=== PATIENT | female | born 1975 | race Caucasian/White ===

== ENCOUNTER 2017-11-28 10:27 | Emergency (ER) | payer OTHER ==
--- NOTE | 2017-11-28 12:12 | ED Physician Documentation ---
PD HPI CHEST PAIN - Stated complaint Stated Complaint: CHEST PX/COUGH - Chief complaint Chief Complaint: Resp - History obtained from History obtained from: Patient - History of Present Illness Timing - onset: Other (Previously healthy 42-year-old non-smoker with no possibility of presents with 3-1/2 weeks of intermittently productive cough that started with fevers but over the last 2 days has developed chest pain with deep breathing and coughing on the left side. She is modestly short of breath. Fevers are gone now.) Review of Systems Constitutional: reports: Fatigue. denies: Fever, Chills Nose: reports: Congestion. denies: Rhinorrhea / runny nose Throat: denies: Sore throat Cardiac: reports: Chest pain / pressure Respiratory: reports: Dyspnea, Cough PD PAST MEDICAL HISTORY - Past Medical History Past Medical History: No - Past Surgical History Past Surgical History: No - Present Medications Home Medications: Ambulatory Orders Medication Instructions Recorded Confirmed LORazepam [Ativan] 0.5 - 1 mg PO Q8HR PRN #15 tablet 08/22/15 Multivitamin [Multivitamins] 1 tab DAILY 08/22/15 08/22/15 Albuterol Sulfate [Proventil Hfa 1 - 2 puffs IH Q4H PRN #1 11/28/17 Inhaler] [email or web address] Azithromycin [Zithromax] 250 mg PO DAILY #6 tablet 11/28/17 Ibuprofen [Motrin] 800 mg PO Q8H PRN #30 tablet 11/28/17 - Allergies Allergies/Adverse Reactions: Allergies Allergy/AdvReac Type Severity Reaction Status Date / Time doxycycline Allergy Unknown Verified 11/28/17 10:37 erythromycin base Allergy Unknown Verified 11/28/17 10:37 - Social History Does the pt smoke?: No Smoking Status: Never smoker Does the pt drink ETOH?: Yes Does the pt have substance abuse?: No - Immunizations Immunizations are current?: Yes PD ED PE NORMAL - Vitals Vital signs reviewed: Yes - General General: Alert and oriented X 3, No acute distress - HEENT HEENT: PERRL, EOMI, Ears normal, Moist mucous membranes, Pharynx benign - Neck Neck: Supple, no meningeal sign, No bony TTP - Cardiac Cardiac: RRR, No murmur - Respiratory Respiratory: No respiratory distress, Other (She is a clear clinical left basilar pneumonia with crackles and diminished sounds on that side.) - Abdomen Abdomen: Non tender - Neuro Neuro: Alert and oriented X 3, Normal speech - Psych Psych: Normal mood, Normal affect Results - Vitals Vitals: Vital Signs - 24 hr 11/28/17 11/28/17 10:33 12:23 Temperature 36.7 C 37.1 C Heart Rate 115 H 104 H Respiratory 20 20 Rate Blood Pressure 135/69 H 149/88 H O2 Saturation 98 98 Oxygen O2 Source Room air - EKG (time done) 1039 Rate: Rate (enter#) (97) Rhythm: NSR [place]: Normal Intervals: Normal [place] QRS: Normal Ischemia: Normal ST segments Computer interpretation: Agree with computer PD MEDICAL DECISION MAKING - ED course ED course: We discussed her allergies at length, reaction to erythromycin was potentially a rash at age 11 when she was treated for bronchitis. She has never been on Zithromax. I offered Levaquin but after discussion she did not like the side effects and wanted to try the Zithromax which seems pretty safe. Departure - Departure Disposition: 01 Home, Self Care Clinical Impression: Pneumonia Qualifiers: Pneumonia type: due to unspecified organism Laterality: left Lung location: lower lobe of lung Qualified Code(s): J18.1 - Lobar pneumonia, unspecified organism Condition: Good Record reviewed to determine appropriate education?: Yes Instructions: Pneumonia Dc Prescriptions: Albuterol Sulfate [Proventil Hfa Inhaler] 1 - 2 puffs IH Q4H PRN #1 [email or web address] PRN Reason: Cough Azithromycin [Zithromax] 250 mg PO DAILY #6 tablet Ibuprofen [Motrin] 800 mg PO Q8H PRN #30 tablet PRN Reason: PAIN &/OR FEVER Comments: Call your doctor to arrange a follow-up appointment, make the next available appointment. In the interim, return anytime if worse or if new symptoms develop. Your blood pressure was elevated today on check into the emergency department. This does not mean that you have hypertension, it is a common phenomenon to come to the emergency department and have elevated blood pressure. I recommend that you see your primary care physician within the week to have it rechecked when you are feeling better. Discharge Date/Time: 11/28/17 12:23
[2017-11-28 12:24] VITALS: BP 149/88
== END 2017-11-28 12:23 | disposition home or self-care (01) ==
LOC: ED 10:27
DX: J18.9 Pneumonia, unspecified organism (principal); R03.0 Elevated blood-pressure reading, without diagnosis of hypertension
CPT/HCPCS: 93005; 99283; 99284

== ENCOUNTER 2017-12-03 05:53 | Emergency (ER) | payer OTHER ==
[2017-12-03 06:17] LABS: BILIRUBIN,URINE NEGATIVE (NEGATIVE); GLUCOSE, URINE (UA) NEGATIVE (NEGATIVE); KETONES,URINE (UA) NEGATIVE (NEGATIVE); LEUKOCYTE ESTERASE, URINE NEGATIVE (NEGATIVE); NITRITE,URINE NEGATIVE (NEGATIVE); OCCULT BLOOD,URINE LARGE (NEGATIVE); PROTEIN,URINE NEGATIVE (NEGATIVE); UROBILINOGEN,URINE 0.2 (NORMAL) E.U./dL (NORMAL)
[2017-12-03 06:20] LABS: CLARITY,URINE CLEAR (CLEAR); HCG UR QUAL NEGATIVE
[2017-12-03 06:31] LABS: BASOPHILS # (AUTO) 0.1 10^3/uL (0.0-0.1); BASOPHILS % (AUTO) 0.8 %; EOSINOPHILS # (AUTO) 0.2 10^3/uL (0.0-0.7); EOSINOPHILS % (AUTO) 3.5 %; LYMPHOCYTES # (AUTO) 1.7 10^3/uL (1.5-3.5); MEAN CORPUSCULAR HGB CONC 32.3 g/dL (32.0-36.0); MEAN CORPUSCULAR VOLUME 80.5 fL (81.0-99.0); MEAN PLATELET VOLUME 9.4 fL (7.9-10.8); MONOCYTES # (AUTO) 0.4 10^3/uL (0.0-1.0); MONOCYTES % (AUTO) 6.2 %; NEUTROPHILS % (AUTO) 63.5 %; PLT - PLATELET COUNT 178 10^3/uL (130-450); RED CELL DISTRIBUTION WIDTH 14.6 % (12.0-15.0); WHITE BLOOD COUNT 6.4 x10^3/uL (4.8-10.8)
[2017-12-03 06:34] LABS: ALBUMIN/GLOBULIN RATIO 1.2 (1.0-2.2); BILIRUBIN,TOTAL 0.4 mg/dL (0.2-1.0); CALCIUM 8.9 mg/dL (8.5-10.3); CREATININE 0.6 mg/dL (0.4-1.0); TOTAL PROTEIN 7.3 g/dL (6.7-8.2)
[2017-12-03 06:34] LABS: BACTERIA,URINE None Seen /HPF (None Seen); SQUAMOUS EPITHELIAL CELL,UR FEW Squamous (<= Few)
[2017-12-03 07:02] LABS: PLATELET MORPHOLOGY 1+ LARGE PLATELETS (NORMAL); RBC MORPHOLOGY (MULTIPLE) NORMAL APPEARANCE (NORMAL)
[2017-12-03 07:03] LABS: PLATELET ESTIMATE, MANUAL NORMAL (130-450,000) (NORMAL)
--- NOTE | 2017-12-03 07:52 | ED Physician Documentation ---
History of Present Illness - Stated complaint Stated Complaint: ABDOMINAL PAIN - Chief complaint Chief Complaint: Abd Pain - Additonal information Additional information: assumed care 7 AM 42 female presented to the ER overnight with RLQ pain since yesterday has been sick with pna on zmax and coughing quite a lot rlq pain started yesterday no dysuria on her menses denies any chance at all of STD - not sexually active and no vag dc etc seen and started by shift boss slightly tachy labs and RLQ / pelvic sono ordered WBC 6 HCG neg urine + blood but not infection pelvic sono = fibroid abd sono = apendix not seen no secondayr signs - pt quite thin so good sono I went to see pt upon return for sono RRR L lung ronchi (on antibiotics) abd soft, TTP RLQ but not peritoneal pelvic deferred ackerman pt has no risks for STD and sturctures were seen on sono d/w pt that her nl WBC and sono are reassuring this is not appendicitis (could also be secondary to heavy cough) given results this far would not expose pt to radition of a CT scan but did caution pt to return if pain worsens and might reconsider CT at that time she verbalizes an undertsanding Review of Systems Constitutional: denies: Fever Respiratory: reports: Cough (known pna txed for already) GI: reports: Abdominal Pain : reports: LMP (now). denies: Dysuria Endocrine: denies: Easy bruising / bleeding Immunocompromised: denies: Immunocompromised PD PAST MEDICAL HISTORY - Past Medical History Past Medical History: No - Past Surgical History Past Surgical History: No - Present Medications Home Medications: Ambulatory Orders Medication Instructions Recorded Confirmed LORazepam [Ativan] 0.5 - 1 mg PO Q8HR PRN #15 tablet 08/22/15 Multivitamin [Multivitamins] 1 tab DAILY 08/22/15 08/22/15 Albuterol Sulfate [Proventil Hfa 1 - 2 puffs IH Q4H PRN #1 11/28/17 Inhaler] [email or web address] Azithromycin [Zithromax] 250 mg PO DAILY #6 tablet 11/28/17 Ibuprofen [Motrin] 800 mg PO Q8H PRN #30 tablet 11/28/17 - Allergies Allergies/Adverse Reactions: Allergies Allergy/AdvReac Type Severity Reaction Status Date / Time doxycycline Allergy Hives Verified 12/03/17 06:17 erythromycin base Allergy Hives Verified 12/03/17 06:17 - Social History Does the pt smoke?: No Smoking Status: Never smoker Does the pt drink ETOH?: Yes Does the pt have substance abuse?: No - Immunizations Immunizations are current?: Yes - POLST Patient has POLST: No PD ED PE NORMAL - Vitals Vital signs reviewed: Yes - Neck Neck: Supple, no meningeal sign - Cardiac Cardiac: RRR - Respiratory Respiratory: No respiratory distress. No: Clear bilaterally (L lung ronchi) - Abdomen Abdomen: Soft, Other (TTP RLQ but not peritoneal) - Derm Derm: Normal color - Neuro Neuro: Alert and oriented X 3 Results - Vitals Vitals: Vital Signs - 24 hr 12/03/17 12/03/17 06:00 08:03 Temperature 36.7 C Heart Rate 104 H 99 Respiratory 16 15 Rate Blood Pressure 164/89 H 146/77 H O2 Saturation 100 100 Oxygen O2 Source Room air - Labs Labs: Laboratory Tests 12/03/17 12/03/17 12/03/17 06:10 06:10 06:12 WBC 6.4 RBC 5.00 Hgb 13.0 Hct 40.2 MCV 80.5 L MCH 26.0 L MCHC 32.3 RDW 14.6 Plt Count 178 MPV 9.4 Neut # 4.0 Lymph # 1.7 [place] # 0.4 Eos # 0.2 Baso # 0.1 Absolute Nucleated RBC 0.00 Nucleated RBC % 0.0 Manual Slide Review Indicated Platelet Estimate NORMAL (130-450,000) Platelet Morphology 1+ LARGE PLATELETS RBC Morph Micro Appear NORMAL APPEARANCE Sodium Potassium Chloride Carbon Dioxide Anion Gap BUN Creatinine Estimated GFR (MDRD) Glucose Calcium Total Bilirubin AST ALT Alkaline Phosphatase Total Protein Albumin Globulin Albumin/Globulin Ratio Lipase Urine Color LT. YELLOW Urine Clarity CLEAR Urine pH 6.0 Ur Specific [place] <=1.005 <=1.005 Urine Protein NEGATIVE Urine Glucose (UA) NEGATIVE Urine Ketones NEGATIVE Urine Occult Blood LARGE H Urine Nitrite NEGATIVE Urine Bilirubin NEGATIVE Urine Urobilinogen 0.2 (NORMAL) Ur Leukocyte Esterase NEGATIVE Urine RBC 6-10 H Urine WBC 0-3 Ur Squamous Epith Cells FEW Squamous Urine Bacteria None Seen Ur Microscopic Review INDICATED Urine Culture Comments NOT INDICATED Urine HCG, Qual NEGATIVE 12/03/17 06:12 WBC RBC Hgb Hct MCV MCH MCHC RDW Plt Count MPV Neut # Lymph # [place] # Eos # Baso # Absolute Nucleated RBC Nucleated RBC % Manual Slide Review Platelet Estimate Platelet Morphology RBC Morph Micro Appear Sodium 137 Potassium 3.9 Chloride 105 Carbon Dioxide 23 Anion Gap 9.0 BUN 10 Creatinine 0.6 Estimated GFR (MDRD) 110 Glucose 109 H Calcium 8.9 Total Bilirubin 0.4 AST 24 ALT 21 Alkaline Phosphatase 57 Total Protein 7.3 Albumin 4.0 Globulin 3.3 Albumin/Globulin Ratio 1.2 Lipase 29 Urine Color Urine Clarity Urine pH Ur Specific [place] Urine Protein Urine Glucose (UA) Urine Ketones Urine Occult Blood Urine Nitrite Urine Bilirubin Urine Urobilinogen Ur Leukocyte Esterase Urine RBC Urine WBC Ur Squamous Epith Cells Urine Bacteria Ur Microscopic Review Urine Culture Comments Urine HCG, Qual - Rads (name of study) pelvic sono Radiology: See rad report (1.5 cm fibroid, nl ovaries) rlq abd sono Radiology: See rad report (appendic not seen, no secondary signs of appy make appy low probablility) PD MEDICAL DECISION MAKING - ED course ED course: assumed care 7 AM Departure - Departure Disposition: 01 Home, Self Care Clinical Impression: Abdominal pain Qualifiers: Abdominal location: right lower quadrant Qualified Code(s): R10.31 - Right lower quadrant pain Condition: Good Instructions: ED Abdominal Pain Appendx Poss Comments: Your labs were fine - normal kidney liver gallbladder and pancreas function. The urine sample showed blood but not infection The ultrasound shows you have a small fibroid but normal ovaries and no signs of appendicitis. We could get a CT scan as well to see your appendix in more detail - but given the reassuring white blood cell count and ultrasound i do not think it prudent to expose you to so much radiation For now I think it is OK for you to go home But if the pain continues to worsen, please come back and we may reconsider getting the CT scan Tylenol and motrin as needed for the pain Forms: Activity restrictions
--- NOTE | 2017-12-03 07:59 | Ultrasound Report ---
EXAM: PELVIC ULTRASOUND EXAM DATE: 12/03/2017 07:25 AM. CLINICAL HISTORY: Right lower quadrant pain. COMPARISON: None. TECHNIQUE: Realtime transabdominal pelvic scan performed to identify the uterus and adnexa and as an overview of other pelvic structures, followed by transvaginal scan to provide greater detail of the u terus and adnexa, with static image documentation. FINDINGS: Uterus: 11 x 4.6 x 5.4 cm, volume 143 cc. Anteverted position. Normal overall size and echotexture. Masses: Anterior subserosal fibroid measures 1.5 x 0.9 x 1.5 cm. Endometrium: 5 mm. Normal. Cervix: Unremarkable. Right Ovary: 3.3 x 1.4 x 3.5 cm, volume 8.5 cc. Normal echotexture and blood flow. Left Ovary: 3.8 x 2.8 x 1.9 cm, volume 11 cc. Normal echotexture and blood flow. Free Fluid: None. Other: None. IMPRESSION: 1. A 1.5 cm anterior subserosal fibroid. 2. Normal ovaries. [facility] Referring Provider Line: [phone] SITE ID: [id number]
--- NOTE | 2017-12-03 07:59 | Ultrasound Preliminary Report ---
Exam: US PELVIC NON OB W/DOPPLER LTD IMPRESSION: 1. A 1.5 cm anterior subserosal fibroid. 2. Normal ovaries. [facility] SITE ID: [id number]
--- NOTE | 2017-12-03 08:00 | Ultrasound Report ---
EXAM: Limited ABDOMINAL ultrasound EXAM DATE: 12/03/2017 07:40 AM. CLINICAL HISTORY: Rlq pain, eval appendix. COMPARISON: None. TECHNIQUE: Real-time scanning was performed of the right lower quadrant with static images obtained. FINDINGS: APPENDIX: Not seen. COMPRESSION TOLERATED: Moderate. ASSOCIATED FINDINGS: Lymph Nodes Seen: None. Free Fluid/Complex Fluid Seen: None. Thickened Bowel Wall Seen: None. Other: None. IMPRESSION: 1. Appendix not identified. 2. Absence of secondary findings suggests a low probability for appendicitis. Recommend clinical nelida elation. [facility] Referring Provider Line: [phone] SITE ID: [id number]
[2017-12-03 08:05] VITALS: BP 146/77
== END 2017-12-03 09:43 | disposition home or self-care (01) ==
LOC: ED 05:53
DX: R10.31 Right lower quadrant pain (principal)
CPT/HCPCS: 36415; 76705; 76856; 80053; 81001; 81003; 81025; 83690; 85025; 87086; 93976; 99283

== ENCOUNTER 2017-12-23 08:00 | Outpatient (CLI) | payer OTHER ==
[2017-12-23 12:48] LABS: BASOPHILS % (AUTO) 0.8 %; EOSINOPHILS # (AUTO) 0.2 10^3/uL (0.0-0.7); EOSINOPHILS % (AUTO) 2.7 %; HGB - HEMOGLOBIN 13.9 g/dL (12.0-16.0); LYMPHOCYTES # (AUTO) 1.7 10^3/uL (1.5-3.5); LYMPHOCYTES % (AUTO) 29.1 %; MEAN CORPUSCULAR HEMOGLOBIN 26.8 pg (27.0-31.0); MEAN CORPUSCULAR HGB CONC 33.1 g/dL (32.0-36.0); MEAN CORPUSCULAR VOLUME 80.8 fL (81.0-99.0); MEAN PLATELET VOLUME 10.5 fL (7.9-10.8); MONOCYTES # (AUTO) 0.3 10^3/uL (0.0-1.0); MONOCYTES % (AUTO) 5.8 %; NEUTROPHILS # (AUTO) 3.5 10^3/uL (1.5-6.6); NEUTROPHILS % (AUTO) 61.6 %; PLT - PLATELET COUNT 153 10^3/uL (130-450); RED BLOOD COUNT 5.17 10^6/uL (4.20-5.40); RED CELL DISTRIBUTION WIDTH 15.1 % (12.0-15.0); WHITE BLOOD COUNT 5.7 x10^3/uL (4.8-10.8)
[2017-12-23 13:25] LABS: ALBUMIN 4.5 g/dL (3.2-5.5); ALBUMIN/GLOBULIN RATIO 1.6 (1.0-2.2); ALKALINE PHOSPHATASE 46 IU/L (42-121); ALT ALANINE AMINOTRANSFERASE 25 IU/L (10-60); AST ASPARTATE AMINOTRANSFERASE 31 IU/L (10-42); BILIRUBIN,TOTAL 0.6 mg/dL (0.2-1.0); BUN - BLOOD UREA NITROGEN 7 mg/dL (6-20); CALCIUM 8.8 mg/dL (8.5-10.3); CARBON DIOXIDE - CO2 24 mmol/L (21-32); CHLORIDE 103 mmol/L (101-111); CHOL/HDL RATIO 4.3 (<4.4); CHOLESTEROL 231 mg/dL; CREATININE 0.7 mg/dL (0.4-1.0); GFR - MDRD 92 (>89); GLUCOSE 93 mg/dL (70-100); HDL CHOLESTEROL 54 mg/dL; LDL CHOLESTEROL,CALCULATED 158 mg/dL; LDL/HDL RATIO 2.9 (<4.4); SODIUM 135 mmol/L (135-145); TOTAL PROTEIN 7.4 g/dL (6.7-8.2); VLDL CHOLESTEROL 19 mg/dL
[2017-12-23 13:28] LABS: HB2 TOTAL 15.2 g/dL; HEMOGLOBIN A1C 0.49 g/dL; HEMOGLOBIN A1C % 5.1 % (4.6-6.2)
[2017-12-23 13:37] LABS: THYROID STIMULATING HORMONE 1.77 uIU/mL (0.34-5.60)
== END 2017-12-23 08:01 ==
LOC: LAB.WCP 08:00
PROVIDERS: ATTEND Family Medicine
DX: Z00.00 Encounter for general adult medical examination without abnormal findings (principal)
CPT/HCPCS: 36415; 80053; 80061; 82306; 82607; 82746; 83036; 83721; 84443; 85025

== ENCOUNTER 2018-11-25 11:27 | Outpatient (CLI) | payer OTHER ==
--- NOTE | 2018-11-25 14:56 | XRAY Report ---
Reason: COUGH Procedure Date: 11/25/2018 Accession Number: [id number] / [id number] Procedure: XR - Chest 2 View X-Ray CPT Code: 46799 FULL RESULT: EXAM: CHEST RADIOGRAPHY EXAM DATE: 11/25/2018 11:32 AM. CLINICAL HISTORY: Cough. COMPARISON: None. TECHNIQUE: 2 views. FINDINGS: Lungs/Pleura: No focal opacities evident. No pleural effusion. No pneumothorax. Normal volumes. Mediastinum: Heart and mediastinal contours are unremarkable. Other: None. IMPRESSION: Normal 2-view chest radiography. [facility]
== END 2018-11-25 11:28 | disposition home or self-care (01) ==
LOC: DI 11:27 → DI.WCP 11:28
PROVIDERS: ATTEND Family Medicine
DX: R05 Cough (principal)
CPT/HCPCS: 71046